=== PATIENT | female | born 1975 | race Caucasian/White ===

== ENCOUNTER 2019-02-22 12:12 | Emergency (ER) | payer OTHER ==
[~2019-02-22] VITALS: Ht 160 cm; Wt 53.2 kg
[~2019-02-22 12:12] MED LIST: BACTRIM DS TAB1 EACH PO; ERYTHROMYCIN E3.5 G1 OPHTHALMIC; HYDROCODONE-AP1 EAC6 PO; IBUPROFEN 600600 M1 PO; NAPROSYN500 MG PO; NOHOMEMEDICATIONS; NORCO 5-325 TA1 EACH PO; PENICILLIN VK500 M1 PO; ROBAXIN 750 MG750 M1 PO; SYNTHROID150 MCG PO; THYROID; VALTREX; VALTREX 500 MG500 MG PO; VALTREX1000 MG PO
[2019-02-22] MEDS ORDERED: ZYRTEC10 M5 PO (12:24)
[2019-02-22 12:47] LABS: URINE BLOOD 3+ (Negative); URINE CLARITY SL CLOUDY; URINE COLOR BROWN; URINE GLUCOSE-RANDOM TRACE (Negative); URINE KETONES TRACE (Negative); URINE LEUKOCYTES-REFLEX TRACE (Negative); URINE PROTEIN 2+ (Negative); URINE SPECIFIC GRAVITY 1.025 (1.005-1.030)
[2019-02-22 12:49] LABS: ICTOTEST (BILI CONFIRMATORY) Positive (Negative); URINE BILIRUBIN 3+ (Negative); URINE NITRITE-REFLEX POSITIVE (Negative)
[2019-02-22 13:00] LABS: SQUAMOUS 0-3 Few /LPF (0-3)
[2019-02-22 13:01] LABS: BACTERIA-REFLEX 1-9 Few /HPF (None Seen); CRYSTALS None Seen /LPF (None Seen); HYALINE CASTS 0-3 Few /LPF (None Seen); MUCUS 4-6 Moderate strn/LPF (None Seen); URINE RBC >20 Many /HPF (0-2); URINE WBC-REFLEX 6-15 Few /HPF (0-5)
[2019-02-22 13:16] LABS: HEMOGLOBIN 12.2 gm/dL (12.0-15.0); MCV 102.2 fL (80.0-100.0); NUCLEATED RBCS 0 /100WBC; PLATELET COUNT* 147 thou/uL (150-400); RDW-CV 16.5 % (10.5-14.5)
[2019-02-22 13:18] LABS: HEMATOCRIT 35.1 % (37.0-47.0); MCH 35.5 pg (26.0-34.0); MCHC 34.7 g/dL (28.0-37.0); MPV 9.6 fl. (7.2-11.1); RBC 3.43 mil/uL (4.20-5.00); WBC 4.3 thou/uL (4.0-11.0)
[2019-02-22 14:33] LABS: POTASSIUM 4.3 mmol/L (3.5-5.1); SODIUM 148.8 mmol/L (136-145)
[2019-02-22 14:34] LABS: BUN 10.8 mg/dL (7-18); CHLORIDE 109.2 mmol/L (98-107); CREATININE 0.7 mg/dL (0.6-1.3); GLUCOSE 127.2 mg/dL (70-99)
[2019-02-22 14:35] LABS: ALKALINE PHOSPHATASE 547.2 U/L (46-116); CALCIUM 9.5 mg/dL (8.5-10.1); SGOT 362.4 U/L (15-37); SGPT 129.6 U/L (30-65)
[2019-02-22 14:36] LABS: ALBUMIN 2.9 g/dL (3.4-5.0); TOTAL PROTEIN 6.7 g/dL (6.4-8.2)
[2019-02-22 14:51] LABS: ABSOLUTE BASOPHILS 0.1 thou/uL (0.0-0.2); ABSOLUTE LYMPHOCYTES 1.7 thou/uL (0.8-5.3); ABSOLUTE NEUTROPHILS 2.4 thou/uL (1.6-8.1); ATYPICAL LYMPHS 3 %; PLATELET ESTIMATE DECREASED
[2019-02-22] MEDS ORDERED: MACROBID 100 M100 M1 PO (15:17)
[2019-02-22 15:30] VITALS: BP 118/81
== END 2019-02-22 15:31 | disposition left against medical advice (07) ==
LOC: M.ERS 12:12
PROVIDERS: Emergency Medicine
DX: K70.10 Alcoholic hepatitis without ascites (principal); N39.0 Urinary tract infection, site not specified; F17.210 Nicotine dependence, cigarettes, uncomplicated; Z91.041 Radiographic dye allergy status; Z98.51 Tubal ligation status; Z98.890 Other specified postprocedural states